=== PATIENT | female | born 1955 | race Caucasian/White ===

== ENCOUNTER 2020-08-04 06:47 | Day surgery (SDC) | payer BC ==
[~2020-08-04 06:47] MED LIST: ALLEGRA-D 2424 HOUR PO; ALLERGY SHOTS SC; B COMPLE4 PO; CALCIUM 500+D500 + PO; CELEBREX100 M1 PO; COMBIPATC1; D31000 UNIT PO; DYMISTA1 SPR; ESTRADIOL TD; IS-ZC 50 50 MG1 TAB PO; MONTELUKAST SOD10 MG PO; MONTELUKAST SODI4 MG; MULTI VIT PO; NEXIUM40 M1 PO; TOVIAZ8 MG PO; VITAMIN B-121000 MCG PO; VITAMIN C1000 MG PO; XYZAL ALLERGY 245 MG
[2020-08-04 09:32] VITALS: BP 118/74
== END 2020-08-04 09:27 | disposition home or self-care (01) | DRG 392 ==
LOC: ENDO 06:47 → ORM 08:00 → ENDO 09:27 → ORM 10:15
PROVIDERS: ATTEND Surgery
PROC: 0DB68ZX Excision of Stomach, Via Natural or Artificial Opening Endoscopic, Diagnostic (ICD-10-PCS; principal; 2020-08-04)
PROC: 0DB78ZX Excision of Stomach, Pylorus, Via Natural or Artificial Opening Endoscopic, Diagnostic (ICD-10-PCS; 2020-08-04)
DX: K29.50 Unspecified chronic gastritis without bleeding (principal); K44.9 Diaphragmatic hernia without obstruction or gangrene; J38.7 Other diseases of larynx; J30.2 Other seasonal allergic rhinitis; Z20.822 Contact with and (suspected) exposure to COVID-19